=== PATIENT | male | born 1980 | race African-American/Black ===

== ENCOUNTER 2025-04-12 23:11 | Emergency (ER) | payer OTHER ==
[~2025-04-12] VITALS: Ht 182.9 cm; Wt 130.4 kg
[2025-04-12 23:20] VITALS: TEMP 98.4
[2025-04-12 23:30] LABS: GLUCOMETER DEV NAME(LOC) ERT.7; GLUCOSE,POINT OF CARE 166 MG/DL (70-110)
[2025-04-13] MEDS: KETOROLAC TROMETHAMINE 60 MG/2 ML VIAL IM ONE (00:28)
[2025-04-13 04:56] VITALS: BP 141/99; PULSE 75; RESP 18; O2SAT 98
== END 2025-04-13 07:00 | disposition home or self-care (01) ==
LOC: EMS 23:12
DX: G89.29 Other chronic pain (principal); M54.50 Low back pain, unspecified; M54.2 Cervicalgia; E11.9 Type 2 diabetes mellitus without complications; E78.5 Hyperlipidemia, unspecified; I10 Essential (primary) hypertension; I25.10 Atherosclerotic heart disease of native coronary artery without angina pectoris; J45.909 Unspecified asthma, uncomplicated; Z98.890 Other specified postprocedural states; Z90.49 Acquired absence of other specified parts of digestive tract; Z98.1 Arthrodesis status
CPT/HCPCS: 72040; 72100; 82962; 99284; J1885